=== PATIENT | female | born 2000 | race American Indian/Alaskan Native ===

== ENCOUNTER 2022-01-20 11:31 | Emergency (ER) | payer MEDICAID ==
[2022-01-20 11:37] VITALS: BP 105/58
[2022-01-20] MEDS ORDERED: ACETAMINOPHEN W/CODEINE 300-30 MG TAB PO ONE (15:51)
[2022-01-20 17:39] LABS: Mucus,Urine FEW /HPF; RBC,Urine < 1.0 /HPF (0.0-6.0)
--- NOTE | 2022-01-20 17:39 | Emergency Department Report ---
ED ENT HPI - General Chief complaint: Pain General Stated complaint: BODYACHE Time Seen by Provider: 01/20/22 15:34 Source: patient, EMS Mode of arrival: Ambulatory Limitations: No Limitations - History of Present Illness Initial comments: 21 yo black female with no pmh presents to ed for evaluation of 2 day history of bodyaches, shea, nausea, cough, and intermittent dizziness. She denies sob, abdominal pain, and active vomiting. -: Gradual, days(s) (2-3) Location: other (bodyaches) Severity: severe Severity scale (0 -10): 10 Quality: aching Consistency: constant Associated Symptoms: fever, cough, sore throat, rhinorrhea. denies: gum swelling, toothache, pain with swallowing, tinnitus, hearing loss, discharge from ear - Related Data Previous Rx's Medication Instructions Recorded Last Taken Type Ondansetron [Zofran Odt] 4 mg PO Q8HR PRN #12 tab.rapdis 01/20/22 Unknown Rx Allergies Allergy/AdvReac Type Severity Reaction Status Date / Time No Known Allergies Allergy Verified 01/20/22 11:37 ED Dental HPI - General Chief complaint: Pain General Stated complaint: BODYACHE Time Seen by Provider: 01/20/22 15:34 Source: patient, EMS Mode of arrival: Ambulatory Limitations: No Limitations - Related Data Previous Rx's Medication Instructions Recorded Last Taken Type Ondansetron [Zofran Odt] 4 mg PO Q8HR PRN #12 tab.rapdis 01/20/22 Unknown Rx Allergies Allergy/AdvReac Type Severity Reaction Status Date / Time No Known Allergies Allergy Verified 01/20/22 11:37 ED Review of Systems ROS: Stated complaint: BODYACHE Other details as noted in HPI Comment: All other systems reviewed and negative Constitutional: malaise, weakness. denies: chills, fever Eyes: denies: vision change ENT: congestion Respiratory: cough. denies: shortness of breath, SOB with exertion, SOB at rest, stridor, wheezing Cardiovascular: denies: chest pain, palpitations Gastrointestinal: denies: abdominal pain, nausea, vomiting Musculoskeletal: denies: back pain Skin: denies: rash, lesions Neurological: headache, weakness ED Past Medical Hx - Medications Home Medications: Home Medications Medication Instructions Recorded Confirmed Last Taken Type Ondansetron [Zofran Odt] 4 mg PO Q8HR PRN #12 tab.rapdis 01/20/22 Unknown Rx ED Physical Exam - General Limitations: No Limitations General appearance: alert, in no apparent distress - Head Head exam: Present: atraumatic, normocephalic - Eye Eye exam: Present: normal appearance. Absent: conjunctival injection, periorbital swelling, periorbital tenderness - ENT ENT exam: Present: TM's normal bilaterally. Absent: normal exam (bilateral nasal mucosal edema ), normal orophraynx (erythema to posterior oropharnyx ) - Neck Neck exam: Present: normal inspection. Absent: tenderness, lymphadenopathy - Respiratory Respiratory exam: Present: normal lung sounds bilaterally, chest wall tenderness. Absent: respiratory distress, wheezes, rales, rhonchi, stridor - Cardiovascular Cardiovascular Exam: Present: regular rate, normal heart sounds - GI/Abdominal GI/Abdominal exam: Present: soft, normal bowel sounds. Absent: distended, tende rness, guarding, rebound, rigid - Extremities Exam Extremities exam: Present: normal inspection, full ROM, normal capillary refill. Absent: pedal edema, joint swelling, calf tenderness - Back Exam Back exam: Present: normal inspection. Absent: CVA tenderness (R), CVA tenderness (L) - Neurological Exam Neurological exam: Present: alert, oriented X3, CN II-XII intact, normal gait, reflexes normal. Absent: motor sensory deficit - Psychiatric Psychiatric exam: Present: normal affect, normal mood - Skin Skin exam: Present: warm, dry, intact, normal color ED Course Vital Signs 01/20/22 01/20/22 11:36 20:03 Temperature 97.4 F L 97.4 F L Pulse Rate 65 65 Respiratory 14 14 Rate Blood Pressure 105/58 105/58 [Left] O2 Sat by Pulse 98 98 Oximetry - Reevaluation(s) Reevaluation #1: 01/20/22 17:39 Upon reevaluation, patient states that she feels better. She states that headache and body aches are completely resolved. ED Medical Decision Making - Medical Decision Making 21 yo black female with no pmh presents to ed for evaluation of 2 day history of bodyaches, shea, nausea, cough, and intermittent dizziness. She denies sob, abdominal pain, and active vomiting. Physical exam unremarkable. Symptoms totally resolved after medications. Urine negative for UTI but positive for . Patient will be discharged home with Zofran to use as needed for nausea and advised to use Tylenol as needed for pain. She is advised to follow-up with [facility] for further evaluation and management of and return to the emergency department as needed. She verbalizes understanding of and agreement with plan of care. Critical care attestation.: If time is entered above; I have spent that time in minutes in the direct care of this critically ill patient, excluding procedure time. ED Disposition Clinical Impression: Viral syndrome Qualifiers: Weeks of gestation: unspecified Qualified Code(s): Z34.90 - Encounter for supervision of normal , unspecified, unspecified trimester Disposition: HOME / SELF CARE / HOMELESS Is pt being admited?: No Does the pt Need Aspirin: No Condition: Stable Instructions: Viral Illness, Adult, First Trimester of Additional Instructions: Use Tylenol as needed for pain. Start vitamin. Increase intake of noncaffeinated fluids. Follow-up with [facility] for further care. Return to the emergency department as needed. Prescriptions: Ondansetron [Zofran Odt] 4 mg PO Q8HR PRN #12 tab.rapdis PRN Reason: Nausea And Vomiting Referrals: YOLIS ESCOBEDO MD [Primary Care Provider] - 3-5 Days CODI LIVINGSTON MD [Staff Physician] - 3-5 Days [facility] [Provider Group] - 3-5 Days [facility] [Provider Group] - 3-5 Days Forms: Work/School Release Form(ED) Time of Disposition: 17:51
[2022-01-20 17:40] LABS: Color,Urine Yellow (Yellow)
[2022-01-20 17:42] LABS: HCG Qualitative,Urine Positive (Negative)
== END 2022-01-20 20:04 | disposition home or self-care (01) ==
LOC: ED 11:31
DX: O26.891 Other specified pregnancy related conditions, first trimester (principal); B34.9 Viral infection, unspecified; M79.18 Myalgia, other site; R05.9 Cough, unspecified; R11.0 Nausea; R51.9 Headache, unspecified; Z79.899 Other long term (current) drug therapy; Z3A.00 Weeks of gestation of pregnancy not specified
CPT/HCPCS: 81001; 81025; 99283